=== PATIENT | male | born 1975 | race Caucasian/White ===

== ENCOUNTER 2021-11-20 12:37 | Emergency (ER) | payer OTHER, SELFPAY ==
--- NOTE | 2021-11-20 12:41 | ED.MALEGU ---
HPI - Male Genitourinary General Chief complaint: Urogenital-Male Stated complaint: left testicle pain Time Seen by Provider: 11/20/21 12:50 Source: patient and RN notes reviewed Mode of arrival: ambulatory Limitations: no limitations History of Present Illness HPI Narrative: 46-year-old male presents to the [facility] with complaints of left testicular pain that became worse last Thursday. Patient states it is a painful, pulling sensation. Has had chronic testicular issues for a couple of months and has talked with primary care provider, had been ordered an ultrasound which he has missed. Patient denies any abdominal pain, nausea or vomiting. Patient states that he was getting out of the car on Thursday when he had a sharp pulling pain that prevented him from walking. States that when he tries walking and lifting his left leg he is having increased pain. MD Complaint: testicle pain (Left) Duration: constant Location: left testicle Radiation: left inguinal region Related Data Home Medications Medication Instructions Recorded Confirmed amlodipine 10 mg-valsartan 320 mg tablet 11/20/21 tablet dapagliflozin 10 mg tablet mg 11/20/21 ([facility]) hydrochlorothiazide 25 mg tablet mg 11/20/21 metformin 500 mg tablet mg 11/20/21 11/20/21 Allergies Allergy/AdvReac Type Severity Reaction Status Date / Time Sulfa (Sulfonamide Allergy Unknown Other Verified 11/20/21 12:45 Antibiotics) sulfanilamide Allergy Unknown Other Verified 11/20/21 12:45 Review of Systems Review of Systems: All systems reviewed & are unremarkable except as noted in HPI and below Constitutional: Constitutional: Reports no additional constitutional complaints, Denies chills and Denies fever(s) Eyes: Eyes: Reports no additional eye complaints ENT: Reports system reviewed and no additional complaints, except as documented Cardiovascular: Cardiovascular: Reports no additional cardiovascular complaints Respiratory: Respiratory: Reports no additional respiratory complaints Gastrointestinal: Gastrointestinal: Reports no additional gastrointestinal complaints Genitourinary: Genitourinary: Reports as per HPI and Reports testicular pain (left) Musculoskeletal: Musculoskeletal: Reports no additional musculoskeletal complaints Integumentary/Breasts: Skin/Breast: Reports system reviewed and no additional complaints, except as docu Neurologic: Reports system reviewed and no additional complaints, except as documented Psychiatric: Psychiatric: Reports no additional psychiatric complaints Allergic/Immunologic: Allergic/Immunologic: Reports no additional allergic/immunologic complaints [facility] Past Medical History Medical History (Updated 11/20/21 @ 13:08 by Blaire Estevez APRN) Benign essential hypertension BMI 40.0-44.9, adult History of hypothyroidism Hyperlipidemia Family History Family History Sibling Family history of elevated blood lipids Family history of thyroid disease Diabetes mellitus Hypertension Family history of malignant neoplasm of breast in first degree relative Father Cerebrovascular accident Family history of diabetes mellitus in first degree relative Diabetes mellitus Hypertension Patient's father is in good health Family history of malignant melanoma Mother Family history of thyroid disease Diabetes mellitus Hypertension Family history of malignant neoplasm of ovary Other Family history of arthritis Family history of cardiovascular disease Family history of mental disorder Social History Social History Smoking status: Former smoker Smoking end date: 03/16/05 Alcohol intake: current Comments At the time of my signature, I reviewed and agree with the nursing past medical, surgical, social, and family history. There is no relevant family history pertinent to the patient complaint.
[2021-11-20 12:45] VITALS: BP 156/70; PULSE 86; RESP 16; TEMP 36.6; O2SAT 98
[2021-11-20 12:48] VITALS: BP 156/70; PULSE 86; RESP 16; TEMP 36.6; O2SAT 98
== END 2021-11-20 12:56 | disposition short-term general hospital (02) ==
PROVIDERS: Emergency Provider Nurse Practitioner; PCP Nurse Practitioner Family
DX: N50.812 Left testicular pain (principal); Z87.891 Personal history of nicotine dependence; I10 Essential (primary) hypertension; E03.9 Hypothyroidism, unspecified; E78.5 Hyperlipidemia, unspecified
CPT/HCPCS: 99212; G0463

== ENCOUNTER 2021-11-20 13:14 | Emergency (ER) | payer OTHER, SELFPAY ==
--- NOTE | ~2021-11-20 | US_ITS ---
EXAMINATION: US scrotum doppler DATE: 11/20/2021 14:06 INDICATION: Left testicular pain. TECHNIQUE: Grayscale and Doppler ultrasound images of the testes were obtained. COMPARISON: None. FINDINGS: The right testis measures 4.0 x 2.2 x 2.9 cm. The left testis measures 4.0 x 2.2 x 2.7 cm. There is normal vascular flow to both testes. The right epididymis is normal with normal vascular kassie w. The left epididymis is normal with normal vascular flow. There is no varicocele or hydrocele. IMPRESSION: 1. Normal testes. Reviewed, dictated and finalized at location [facility]. IMPRESSION: 1. Normal testes.
--- NOTE | 2021-11-20 13:39 | PC.NURSE ---
Patient to Ultrasound
[2021-11-20 14:07] VITALS: BP 163/66; PULSE 94; RESP 16; TEMP 36.6; O2SAT 96
--- NOTE | 2021-11-20 15:44 | ED.GENADULT ---
HPI - General Adult General Chief complaint: Urogenital-Male Stated complaint: left testicle pain Time Seen by Provider: 11/20/21 14:32 History of Present Illness HPI narrative: 46-year-old male presenting to the emergency department for evaluation of left groin pain that has been worsening over the course of the last month. Patient states over the course of the last month he has had intermittent worsening left testicular pain. Patient states that he has been noticing that the pain is associated with lifting and straining. Patient states he did start doing lifting in order to lose weight. Related Data Home Medications Medication Instructions Recorded Confirmed amlodipine 10 mg-valsartan 320 mg 1 tablet PO DAILY 11/20/21 11/20/21 tablet dapagliflozin 10 mg tablet 10 mg PO DIRECTED 11/20/21 11/20/21 ([facility]) hydrochlorothiazide 25 mg tablet 25 mg PO DAILY 11/20/21 11/20/21 metformin 500 mg tablet 500 mg PO BID 11/20/21 11/20/21 Allergies Allergy/AdvReac Type Severity Reaction Status Date / Time Sulfa (Sulfonamide Allergy Unknown Other Verified 11/20/21 12:45 Antibiotics) sulfanilamide Allergy Unknown Other Verified 11/20/21 12:45 Review of Systems Review of Systems: CONSTITUTIONAL: Denies fever, chills, or sweats. EYES: Denies visual changes, redness, or discharge. ENT: Denies rhinorrhea, congestion, sore throat, or otalgia. CARDIOVASCULAR: Denies chest pain, palpitations, or edema. RESPIRATORY: Denies cough or dyspnea. GASTROINTESTINAL: See HPI GENITOURINARY: See HPI SKIN: Denies rash or itching. MUSCULOSKELETAL: Denies back pain, joint pain, or myalgia. NEUROLOGIC: Denies headache, numbness, or weakness. [facility] Past Medical History Medical History (Updated 11/20/21 @ 15:48 by Brian Nunez MD) Benign essential hypertension BMI 40.0-44.9, adult History of hypothyroidism Hyperlipidemia Family History Family History Sibling Family history of elevated blood lipids Family history of thyroid disease Diabetes mellitus Hypertension Family history of malignant neoplasm of breast in first degree relative Father Cerebrovascular accident Family history of diabetes mellitus in first degree relative Diabetes mellitus Hypertension Patient's father is in good health Family history of malignant melanoma Mother Family history of thyroid disease Diabetes mellitus Hypertension Family history of malignant neoplasm of ovary Other Family history of arthritis Family history of cardiovascular disease Family history of mental disorder Social History Social History Smoking status: Former smoker Smoking end date: 03/16/05 Alcohol intake: current Exam Narrative: APPEARANCE: Well appearing, no pain, no distress, well-nourished. HEAD: normocephalic, atraumatic. EYES: PERRLA/EOMI, conjunctivae clear. NOSE: Normal no drainage EARS:TMS clear with good light reflex. THROAT: Pharynx clear, no exudate. NECK: Supple. No adenopathy, no masses. RESPIRATORY: Airway patent, respirations nonlabored. Clear to auscultation bilaterally, no rales, rhonchi, wheezing. CARDIOVASCULAR: Regular rate and rhythm without murmurs rubs or gallops. ABDOMINAL: Soft, nontender, nondistended, normal bowel sounds. Some tenderness overlying the left inguinal canal. No palpable hernia. MUSCULOSKELETAL: Moves all extremities. Strength/ROM intact, No edema, No calf tenderness. NEURO: Alert. Cranial nerves II through XII intact. Grossly intact SKIN: Warm, dry. Normal Color Course Course Emergency Course: Ultrasound showed no acute abnormality. Patient's story was concerning for strain versus early stages of a hernia. No palpable hernia was palpated. Patient was told to refrain from lifting. Patient was provided follow-up for surgery. Patient was comfortable with the plan for discharge and
[2021-11-20 15:55] VITALS: BP 142/78; PULSE 90; RESP 16; O2SAT 97
== END 2021-11-20 16:00 | disposition home or self-care (01) ==
PROVIDERS: Emergency Provider Emergency Medicine; PCP Nurse Practitioner Family
DX: N50.812 Left testicular pain (principal); K46.9 Unspecified abdominal hernia without obstruction or gangrene; I10 Essential (primary) hypertension; E03.9 Hypothyroidism, unspecified; E78.5 Hyperlipidemia, unspecified; Z87.891 Personal history of nicotine dependence
CPT/HCPCS: 76870; 93976; 99284

== ENCOUNTER 2023-01-30 12:51 | Emergency (ER) | payer OTHER, SELFPAY ==
[2023-01-30 13:07] VITALS: BP 159/76; PULSE 93; RESP 16; TEMP 37.3; O2SAT 99
--- NOTE | 2023-01-30 13:30 | ED.URI ---
HPI - URI/Sore Throat General Chief Complaint: Upper Respiratory Infection Stated Complaint: pos COVID home test today Time Seen by Provider: 01/30/23 13:30 Source: patient, RN notes reviewed and old records reviewed Mode of arrival: ambulatory Limitations: no limitations History of Present Illness HPI Narrative: 47-year-old male presents to the [facility] with a positive home COVID test today. Patient states yesterday he started with a scratchy throat and fatigue. States that he does have a co-worker that is out sick as well. Onset (ago): day(s) (1) Related Data Home Medications Medication Instructions Recorded Confirmed amlodipine 10 mg-valsartan 320 mg 1 tablet PO DAILY 11/20/21 11/20/21 tablet dapagliflozin propanediol 10 mg 10 mg PO DIRECTED 11/20/21 11/20/21 tablet (Farxiga) hydrochlorothiazide 25 mg tablet 25 mg PO DAILY 11/20/21 11/20/21 cyclobenzaprine 10 mg tablet mg 01/30/23 tirzepatide 10 mg/0.5 mL mg subcut 01/30/23 subcutaneous pen injector (Mouncarsonro) Allergies Allergy/AdvReac Type Severity Reaction Status Date / Time Sulfa (Sulfonamide Allergy Unknown Other Verified 01/30/23 13:04 Antibiotics) sulfanilamide Allergy Unknown Other Verified 01/30/23 13:04 Review of Systems Review of Systems: All systems reviewed & are unremarkable except as noted in HPI and below Constitutional: Constitutional: Reports as per HPI Eyes: Eyes: Reports no additional eye complaints ENT: Reports system reviewed and no additional complaints, except as documented Cardiovascular: Cardiovascular: Reports no additional cardiovascular complaints, Denies chest pain and Denies dyspnea Respiratory: Respiratory: Reports no additional respiratory complaints, Denies chest congestion, Denies cough and Denies dyspnea Gastrointestinal: Gastrointestinal: Reports no additional gastrointestinal complaints, Denies abdominal pain, Denies nausea and Denies vomiting Musculoskeletal: Musculoskeletal: Reports no additional musculoskeletal complaints Integumentary/Breasts: Skin/Breast: Reports system reviewed and no additional complaints, except as docu Neurologic: Reports system reviewed and no additional complaints, except as documented Psychiatric: Psychiatric: Reports no additional psychiatric complaints Allergic/Immunologic: Allergic/Immunologic: Reports no additional allergic/immunologic complaints PMFSH Past Medical History Medical History Benign essential hypertension BMI 40.0-44.9, adult History of hypothyroidism Hyperlipidemia Family History Family History Sibling Family history of elevated blood lipids Family history of thyroid disease Diabetes mellitus Hypertension Family history of malignant neoplasm of breast in first degree relative Father Cerebrovascular accident Family history of diabetes mellitus in first degree relative Diabetes mellitus Hypertension Patient's father is in good health Family history of malignant melanoma Mother Family history of thyroid disease Diabetes mellitus Hypertension Family history of malignant neoplasm of ovary Other Family history of arthritis Family history of cardiovascular disease Family history of mental disorder Social History Social History Smoking status: Former smoker Smoking end date: 03/16/05 Alcohol intake: current Comments At the time of my signature, I reviewed and agree with the nursing past medical, surgical, social, and family history. There is no relevant family history pertinent to the patient complaint. Exam Const: General: cooperative, healthy appearing, comfortable, no acute distress, well developed, alert and well nourished Nutritional Appearance: well nourished and obese Orientation/consciousness: patient oriented x3 Limitations: no limitations
== END 2023-01-30 13:40 | disposition home or self-care (01) ==
PROVIDERS: Emergency Provider Nurse Practitioner; PCP Nurse Practitioner Family
DX: U07.1 COVID-19 (principal); I10 Essential (primary) hypertension; E03.9 Hypothyroidism, unspecified; E78.5 Hyperlipidemia, unspecified; Z87.891 Personal history of nicotine dependence
CPT/HCPCS: 87426; 99203; C9803; G0463

== ENCOUNTER 2023-03-23 11:34 | Outpatient (CLI) | payer OTHER, SELFPAY ==
--- NOTE | ~2023-03-23 | MR_ITS ---
MRI of the cervical spine Clinical History: Neck pain Technique: Axial T2-weighted and gradient images, and sagittal T1-weighted, T2-weighted, and STIR syed ges were acquired. Findings: There is no fracture or sublocation of the cervical spine. Vertebral bodies maintain normal height and alignment. No bone marrow signal abnormality seen. No significant disc bulge or herniation seen at any cervical level. There is probable minimal right n eural foraminal narrowing at C4-C5. There may be minimal bilateral neural foraminal narrowing at C5-C 6. No spinal canal stenosis or cord compression at any level. No abnormal signal seen in the spinal cord. Paravertebral soft tissues are unremarkable. Impression: Minimal degenerative spondylosis, as above. Reviewed, dictated and finalized at [facility]. L PROCESS SPECIALIST Impression: Minimal degenerative spondylosis, as above.
== END 2023-03-23 11:35 ==
PROVIDERS: PCP Nurse Practitioner; Visit Provider Nurse Practitioner
DX: Z02.6 Encounter for examination for insurance purposes (principal); M43.02 Spondylolysis, cervical region
CPT/HCPCS: 72141